=== PATIENT | male | born 1975 | race African-American/Black ===

== ENCOUNTER 2023-02-16 07:32 | Day surgery (SDC) | payer OTHER ==
[2023-02-14 15:11] VITALS: BMI 24.5
[2023-02-16] MEDS ORDERED: FENTANYL CITRATE/PF 50 MCG/ML VIAL IVPUSH ONE (08:30)
[2023-02-16] MEDS ORDERED: PROPOFOL 40 ML ONE (10:00)
[2023-02-16] MEDS ORDERED: ONDANSETRON 4 MG/2 ML VIAL ONE (10:37)
[2023-02-16] MEDS ORDERED: TRANEXAMIC ACID 1000 MG/10 ML VIAL ONE (10:37)
[2023-02-16] MEDS ORDERED: DEXAMETHASONE SOD PHOSPHATE 4 MG/1 ML VIAL ONE (10:37)
[2023-02-16] MEDS ORDERED: ACETAMINOPHEN 500 MG TABLET (FP) PO PRN (12:00)
[2023-02-16] MEDS ORDERED: oxyCODONE HCL 5 MG TABLET PO PRN ×2 (12:01→13:55)
[2023-02-16] MEDS ORDERED: CEFAZOLIN 2 GM in DEXTROSE 5%-WATER - 50 ML IVPB ONE (12:51)
[2023-02-16] MEDS ORDERED: ONDANSETRON 4 MG/2 ML VIAL IVPUSH PRN (13:55)
[2023-02-16] MEDS ORDERED: LACTATED RINGERS SOLUTION 1,000 ML IV SCH (14:00)
[2023-02-16] MEDS ORDERED: ACETAMINOPHEN 500 MG TABLET (FP) ONE (15:49)
[2023-02-16] MEDS ORDERED: oxyCODONE HCL 5 MG TABLET ONE ×2 (15:49→16:17)
[2023-02-16 17:17] VITALS: TEMP 97
[2023-02-16 17:35] VITALS: BP 112/63; PULSE 67; RESP 16
== END 2023-02-16 16:30 | disposition home or self-care (01) ==
LOC: FASU 07:32
PROVIDERS: ATTEND Orthopaedic Surgery
PROC: 0QBG0ZZ Excision of Right Tibia, Open Approach (ICD-10-PCS; principal; 2023-02-16 09:14)
PROC: 0SBC4ZZ Excision of Right Knee Joint, Percutaneous Endoscopic Approach (ICD-10-PCS; 2023-02-16 09:14)
DX: M17.11 Unilateral primary osteoarthritis, right knee (principal); M24.10 Other articular cartilage disorders, unspecified site; S83.241A Other tear of medial meniscus, current injury, right knee, initial encounter; X58.XXXA Exposure to other specified factors, initial encounter; Y93.9 Activity, unspecified; Y92.9 Unspecified place or not applicable
CPT/HCPCS: 27457; 29881; G0289; 73560-TC-RT-FY; 94760; C1713